=== PATIENT | male | born 1985 | race Caucasian/White ===

== ENCOUNTER 2021-01-16 09:33 | Emergency (ER) | payer BC ==
[~2021-01-16] VITALS: Ht 180.3 cm; Wt 123.0 kg
--- NOTE | 2021-01-16 10:16 | PHYS DOC ---
Past History Past Medical History: Asthma Past Surgical History: No Surgical History Alcohol Use: Occasionally General Adult EDM: Chief Complaint: CHEST PAIN HPI: HPI: Patient is a 35-year-old male coming in for 3 days of left-sided chest pain. Patient states that 3 days ago he was walking up the steps to his house when he felt a strong pain in his chest and "passed out". Patient states he awoke laying on his porch. Is unsure how long he was out but thinks he was lying better seconds. States the pain was like he was kicked by a horse. Patient denies any recent injuries. No other associated symptoms. Patient states the pain is 3 out of 10-day. Has not had this kind of pain in the past. Denies any past medical history denies any tobacco use, denies frequent alcohol use or drugs. Patient states he drinks 3 cups of coffee per day. No significant f amily medical history. Review of Systems: Review of Systems: All other systems within normal limits except for as noted in the HPI Allergies: Allergies: Allergies Coded Allergies Type Severity Reaction Last Updated Verified No Known Drug Allergies 01/16/21 No Physical Exam: PE: Constitutional: Well developed, well nourished, no acute distress, non-toxic appearance. [] HENT: Normocephalic, atraumatic, bilateral external ears normal, nose normal. [] Eyes: PERRLA, conjunctiva normal, no discharge. [] Neck: No rigidity, supple, no stridor. [] Cardiovascular: Regular rate and rhythm, brisk cap refill. No murmurs or gallops, no lower extremity edema [] Lungs & Thorax: Non labored symmetric respirations, no tachypnea or respiratory distress, sounds good auscultation. No chest wall tenderness palpation [] Abdomen: Soft, nondistended. Skin: Warm, dry, no erythema, no rash. [] Back: Unremarkable Extremities: No deformities, range of motion grossly intact, no lower extremity edema [] Neurologic: Alert and oriented X 3, no focal deficits noted. [] Psychologic: Affect normal, judgement normal, mood normal. [] Current Patient Data: Vital Signs: Vital Signs Date Time Temp Pulse Resp B/P (MAP) Pulse Ox O2 Delivery O2 Flow Rate FiO2 01/16/21 09:50 98.7 61 18 130/86 (101) 95 Room Air EKG: EKG: Sinus rhythm, heart rate 61 bpm, left axis deviation, no ST elevation or depression. [] Radiology/Procedures: Radiology/Procedures: PA and lateral views of the chest. Comparison: None. Indication: Chest pain and syncope Findings: The heart size is normal. No pneumothorax or effusion. No air space or interstitial disease. The bony structures are intact. Impression: 1. No acute cardiopulmonary process. [] Heart Score: C/O Chest Pain: Yes HEART Score for Chest Pain: HEART Score for Chest Pain Response (Comments) Value History Slighlty/Non-Suspicious 0 ECG Normal 0 Age < 45 0 Risk Factors 1 or 2 Risk Factors 1 Troponin < Normal Limit 0 Total 1 Risk Factors: Risk Factors: DM, Current or recent (<one month) smoker, HTN, HLP, family hi story of CAD, obesity. Risk Scores: Score 0 - 3: 2.5% MACE over next 6 weeks - Discharge Home Score 4 - 6: 20.3% MACE over next 6 weeks - Admit for Clinical Observation Score 7 - 10: 72.7% MACE over next 6 weeks - Early Invasive Strategies Course & Med Decision Making: Course & Med Decision Making Pertinent Labs and Imaging studies reviewed. (See chart for details) [] Dragon Disclaimer: Dragon Disclaimer: This electronic medical record was generated, in whole or in part, using a voice recognition dictation system. Departure Departure: Impression: Primary Impression: Chest pain Disposition: 01 HOME / SELF CARE / HOMELESS Condition: STABLE Referrals: PCP,UNKNOWN (PCP) Patient Instructions: Chest Pain (Nonspecific) JANI MOELLER MD Jan 16, 2021 10:16
[2021-01-16 10:23] LABS: BASO # 0.1 x10^3/uL (0.0-0.2); BASO % 1 % (0-3); EOS # 0.1 x10^3/uL (0.0-0.7); EOS % 2 % (0-3); HEMATOCRIT 45.5 % (39.0-53.0); HEMOGLOBIN 15.7 g/dL (13.0-17.5); LYMPH # 2.3 x10^3/uL (1.0-4.8); LYMPH % 35 % (24-48); MEAN CORPUSCULAR HEMOGLOBIN 31 pg (25-35); MEAN CORPUSCULAR HGB CONC 34 g/dL (31-37); MEAN CORPUSCULAR VOLUME 91 fL (79-100); MONO # 0.5 x10^3/uL (0.0-1.1); MONO % 8 % (0-9); NEUT # 3.6 x10^3uL (1.8-7.7); NEUT % 54 % (31-73); PLATELET COUNT 308 x10^3/uL (140-400); RED CELL DISTRIBUTION WIDTH 12.7 % (11.5-14.5); WHITE BLOOD COUNT 6.7 x10^3/uL (4.0-11.0)
--- NOTE | 2021-01-16 10:25 | EKG ---
[address] [address] Test Date: 2021-01-16 Test Time: 09:40:10 Pat Name: CHERELLE BRITO Department: Room: Gender: M [employer]: : 1985 Requested By: JANI MOELLER Order Number: [id number] Reading MD: Measurements Intervals [place] Rate: 61 P: 39 ND: 156 QRS: -17 QRSD: 86 T: 41 QT: 390 QTc: 394 Interpretive Statements SINUS RHYTHM LEFTWARD AXIS OTHERWISE NORMAL ECG RI6.02 No previous ECG available for comparison
[2021-01-16 10:43] LABS: CALCIUM 8.9 mg/dL (8.5-10.1); GFR 84.5; POTASSIUM 4.1 mmol/L (3.5-5.1)
[2021-01-16 10:54] LABS: ALBUMIN 3.5 g/dL (3.4-5.0); TOTAL BILIRUBIN 0.9 mg/dL (0.2-1.0)
[2021-01-16 11:05] LABS: BARBITURATES NEG (NEG); BENZODIAZEPINES NEG (NEG); CANNABINOIDS NEG (NEG); COCAINE NEG (NEG); METHADONE NEG (NEG); OPIATES NEG (NEG); PHENCYCLIDINE NEG (NEG)
[2021-01-16 11:06] LABS: AMPHETAMINE/METHAMPHETAMINE NEG (NEG)
[2021-01-16 11:11] LABS: CLARITY,URINE CLEAR; COLOR,URINE YELLOW
[2021-01-16 11:12] LABS: BILIRUBIN,URINE NEG (NEG); GLUCOSE,URINE NEG (NEG); NITRITE,URINE NEG (NEG)
[2021-01-16 11:13] LABS: BACTERIA,URINE 0 /HPF (0-FEW); RBC,URINE 0 /HPF (0-2); SQUAMOUS EPITHELIAL CELL,UR OCC /LPF; WBC,URINE 0 /HPF (0-4)
[2021-01-16] MEDS ORDERED: KETOROLAC 15 MG/ML VIAL. IVP ONE (11:30)
--- NOTE | 2021-01-16 11:48 | RAD ---
PA and lateral views of the chest. Comparison: None. Indication: Chest pain and syncope Findings: The heart size is normal. No pneumothorax or effusion. No air space or interstitial disease. The bon y structures are intact. Impression: 1. No acute cardiopulmonary process. Electronically signed by: Scott Brown MD (01/16/2021 11:46 AM) [id number]
[2021-01-16 12:19] VITALS: BP 106/67
== END 2021-01-16 12:22 | disposition home or self-care (01) ==
LOC: ER 09:33
DX: R07.89 Other chest pain (principal); J45.909 Unspecified asthma, uncomplicated
CPT/HCPCS: 36415; 71046; 80053; 80307; 81001; 83690; 83880; 84484; 85025; 85379; 93005; 96374; 99285; J1885

== ENCOUNTER 2021-05-15 03:19 | Inpatient (IN) | payer BC ==
[~2021-05-15] VITALS: Ht 180.3 cm; Wt 117.0 kg
[2021-05-15] MEDS ORDERED: ACETAMINOPHEN 500 MG TABLET PO ONE ×2 (03:45→16:15)
[2021-05-15] MEDS ORDERED: IV NORMAL SALINE 1,000ML 1,000 ML IV ONE (03:45)
[2021-05-15] MEDS ORDERED: DEXAMETHASONE SOD PHOS 10 MG/ML VIAL. IVP ONE (03:45)
--- NOTE | 2021-05-15 03:53 | PHYS DOC ---
Past History Past Medical History: Asthma Past Surgical History: Other Additional Past Surgical Histo: left arm Alcohol Use: Occasionally General Adult EDM: Chief Complaint: SHORTNESS OF BREATH HPI: HPI: 35-year-old male presents the emergency department with fever, chills, shortness of breath, fatigue for the past 10 days. He reports his symptoms have gradually increased, and now they have become severe. Upon his initial vitals in the emergency department, he was satting at 86% and was placed on 5 L of oxygen to maintain his saturations. He denies ever being on oxygen in the past. He also complains of severe diarrhea for the past several days along with chest pain that feels like pressure in his chest.. the patient denies nausea, vomiting, abdominal pain, urinary symptoms, cough, recent trauma, or any other complaints. Review of Systems: Review of Systems: Constitutional: Admits to fever and chills. Eyes: Denies change in vision, pain. HENT: Admits to headache, congestion. Respiratory: Denies any cough or shortness of breath. Cardiovascular: Admits to chest pain, denies edema. GI: Admits to diarrhea, nausea denies abdominal pain. : Denies change in urination, dysuria. Musculoskeletal: Denies extremity pain, or trauma. Skin: Denies rash, skin change. Neurologic: Denies sensory changes, focal weakness. Psychiatric: Denies depression or anxiety. All other systems reviewed as negative except for what was mentioned in the HPI. Family History: Family History: non contributory Current Medications: Current Meds: Current Medications Medications (Trade) Dose Ordered Sig/Luisito Start Time Stop Time Status Last Admin Dose Admin Acetaminophen (Tylenol) 1,000 mg 1X ONCE 05/15/21 03:45 05/15/21 03:49 DC Dexamethasone Sodium Phosphate (Decadron) 10 mg 1X ONCE 05/15/21 03:45 05/15/21 03:49 DC Info (Do NOT chart on this entry -- for MONITORING) 1 each PRN DAILY PRN 05/15/21 04:00 05/17/21 03:59 Iohexol (Omnipaque 350 Mg/ml) 100 ml 1X ONCE 05/15/21 04:00 05/15/21 04:01 Sodium Chloride 1,000 ml @ 1,000 mls/hr 1X ONCE 05/15/21 03:45 05/15/21 04:44 Allergies: Allergies: Allergies Coded Allergies Type Severity Reaction Last Updated Verified No Known Drug Allergies 05/15/21 No Physical Exam: PE: Constitutional: Mild acute distress. HENT: Atraumatic, bilateral external ears normal, nose normal. Eyes: PERRLA, EOMI, conjunctiva normal, no discharge. Neck: Normal range of motion, supple, no stridor. Cardiovascular: Heart rate regular rhythm. 2+ radial pulses Lungs & Thorax: Mild respiratory distress, symmetrical splinting. Coarse breath sounds bilaterally Abdomen: Soft, no tenderness Skin: Warm, dry. Extremities: No tenderness, no cyanosis, ROM intact, no edema. Neurologic: Alert and oriented X 3, normal motor function, normal sensory function, no focal deficits noted. Non ataxic gait. GCS 15. Psychologic: Affect normal, judgment normal, mood normal. Current Patient Data: Labs: Laboratory Tests Test 05/15/21 03:55 White Blood Count 4.5 x10^3/uL (4.0-11.0) Red Blood Count 4.73 x10^6/uL (4.30-5.70) Hemoglobin 14.6 g/dL (13.0-17.5) Hematocrit 42.3 % (39.0-53.0) Mean Corpuscular Volume 89 fL (79-100) Mean Corpuscular Hemoglobin 31 pg (25-35) Mean Corpuscular Hemoglobin Concent 35 g/dL (31-37) Red Cell Distribution Width 13.1 % (11.5-14.5) Platelet Count 245 x10^3/uL (140-400) Neutrophils (%) (Auto) 79 % (31-73) H Lymphocytes (%) (Auto) 17 % (24-48) L Monocytes (%) (Auto) 4 % (0-9) Eosinophils (%) (Auto) 0 % (0-3) Basophils (%) (Auto) 0 % (0-3) Neutrophils # (Auto) 3.6 x10^3uL (1.8-7.7) Lymphocytes # (Auto) 0.8 x10^3/uL (1.0-4.8) L Monocytes # (Auto) 0.2 x10^3/uL (0.0-1.1) Eosinophils # (Auto) 0.0 x10^3/uL (0.0-0.7) Basophils # (Auto) 0.0 x10^3/uL (0.0-0.2) Sodium Level 135 mmol/L (136-145) L Potassium Level 3.6 mmol/L (3.5-5.1) Chloride Level 99 mmol/L (98-107) Carbon Dioxide Level 28 mmol/L (21-32) Anion Gap 8 (6-14) Blood Urea Nitrogen 11 mg/dL (8-26) Creatinine 1.0 mg/dL (0.7-1.3) Estimated GFR (Cockcroft-Gault) 84.5 Glucose Level 132 mg/dL (70-99) H Calcium Level 7.6 mg/dL (8.5-10.1) L Troponin I Quantitative 0.039 ng/mL (0-0.055) GD-Jyz-W-Type Natriuretic Peptide 39 pg/mL (0-124) Vital Signs: Vital Signs Date Time Temp Pulse Resp B/P (MAP) Pulse Ox O2 Delivery O2 Flow Rate FiO2 05/15/21 03:35 103.1 89 22 133/72 92 Nasal Cannula 5.0 EKG: EKG: Normal sinus rhythm rate of 87, no ST-T wave changes, no ectopic beats, but as reviewed, normal CO, QRS, and QTc intervals. Copious motion artifact. Impression: Normal EKG. interpreted by meChi D.O. Radiology/Procedures: Radiology/Procedures: AP chest x-ray HISTORY: Shortness of breath. FINDINGS: Heart size normal. Mediastinal silhouette is normal. No pneumothorax. No pleural effusion. There are heterogeneous lower lobe greater than upper lobe pulmonary opacities. No pulmonary interstitial edema evident. Bones are unremarkable. IMPRESSION: Preferential lower lobe greater than upper lobe heterogeneous pulmonary opacities, most likely representing multilobar pneumonitis/pneumonia or noncardiogenic pulmonary edema. Electronically signed by: Terry Covarrubias MD (05/15/2021 4:48 AM) CT angiography chest with contrast PQRS statement: CT scans at this facility use dose reduction including either automated exposure control, iterative reconstructions, and /or weight based radiation dosing via mA and kV modification when appropriate to reduce radiation dose to as low as reasonably achievable. Contrast: 100 mL Isovue-370 intravenous contrast. HISTORY: Chest pain. FINDINGS: Ascending aorta diameter 3.3 cm. Heart size is normal. Aorta and esophagus are normal. No pulmonary emboli. There is mediastinal and hilar adenopathy largest lymph nodes measuring up to 2 x 1 cm. Trachea and bronchi are unremarkable. No pulmonary interstitial edema. No pleural effusions. There are b ilateral heterogeneous pulmonary opacities within both groundglass densities as well as some areas of consolidation with involvement of the lower lobes greater than the upper lobes with near complete consolidation of the right lower lobe. Bones are unremarkable. IMPRESSION: 1. No pulmonary artery emboli. 2. Extensive lower lobe greater than upper lobe pulmonary opacities with mixed groundglass densities and areas of consolidation with near-complete opacification right lower lobe, this is most typical of an infectious/inflammatory process including Covid viral pneumonia. 3. Mediastinal and hilar adenopathy. Electronically signed by: Terry Covarrubias MD (05/15/2021 4:47 AM) Heart Score: C/O Chest Pain: Yes HEART Score for Chest Pain: HEART Score for Chest Pain Response (Comments) Value History Moderately Suspicious 1 Age < 45 0 Risk Factors No Risk Factors 0 Troponin < Normal Limit 0 Total 1 Course & Med Decision Making: Course & Med Decision Making Patient with heart score 1. Patient was hypoxic on room air, required oxygen to keep his saturations above 90%. His chest x-ray shows a multifocal pneumonia pattern. He had a CTA ordered due to his hypoxia and tachycardia along with chest pain. Also shows a multifocal pulmonary injury pattern. Appears to be a consistent presentation with Covid pneumonia, although this test is pending patient will be admitted to the hospital service under Dr. Emmanuel Vega - CHI DUGGAN DO Procedure Category Date Status Time Chest Ap Only RAD 05/15/21 Resulted 03:43 Cbc W Autodiff LAB 05/15/21 Complete 03:43 Basic Metabolic Panel LAB 05/15/21 Complete 03:43 Troponin I LAB 05/15/21 Complete 03:43 Nt-Pro Bnp LAB 05/15/21 Complete 03:43 12 Lead Ekg EKG 05/15/21 Transmitted 03:[address] 05/15/21 Resulted 03:43 Coronavirus-19, Pcr LAB 05/15/21 Logged ([facility]) 03:43 Dexamethasone Sod PHA 05/15/21 Complete Phos (Decadron) 03:45 Acetaminophen PHA 05/15/21 Complete (Tylenol) 03:45 Iv Normal Saline PHA 05/15/21 Complete 1,000ml (Iv Sodium 03:45 Iohexol 350 Mg/Ml PHA 05/15/21 Complete (Omnipaque 350 Mg/Ml) 04:00 Contrast Given (Do PHA 05/15/21 In Process Not Chart On This Ent 04:00 Ceftriaxone Sodium PHA 05/15/21 In Process (Rocephin) 04:45 Azithromycin PHA 05/15/21 In Process (Zithromax) 04:45 [place] Order ADT 05/15/21 Transmitted 04:52 Code Status CODE 05/15/21 Transmitted 04:52 Vital Signs, Per ARETHA 05/15/21 In Process Protocol 04:52 Oxygen ARETHA 05/15/21 In Process 04:52 Regular DIET 05/15/21 Transmitted Breakfast Ambulate With ARETHA 05/15/21 In Process Assistance 04:52 Ondansetron Pf PHA 05/15/21 Logged (Zofran) 05:00 Fentanyl Pf (Fentanyl PHA 05/15/21 Logged 2ml Vial) 05:00 Consult Physician By ANITA 05/15/21 Transmitted Name 04:52 Departure Departure: Impression: Primary Impression: Person under investigation for COVID-19 Additional Impression: Pneumonia Disposition: 09 ADMITTED INPATIENT Admitting Physician: Austin Benitez Referrals: PCP,UNKNOWN (PCP) CHI DUGGAN DO May 15, 2021 03:53
[2021-05-15] MEDS ORDERED: IOHEXOL 350 MG/ML 100 ML VIAL. IV ONE (04:00)
[2021-05-15] MEDS ORDERED: CONTRAST GIVEN. MC PRN (04:00)
[2021-05-15 04:11] LABS: BASO % 0 % (0-3); EOS % 0 % (0-3); HEMATOCRIT 42.3 % (39.0-53.0); HEMOGLOBIN 14.6 g/dL (13.0-17.5); LYMPH # 0.8 x10^3/uL (1.0-4.8); LYMPH % 17 % (24-48); MEAN CORPUSCULAR HEMOGLOBIN 31 pg (25-35); MEAN CORPUSCULAR HGB CONC 35 g/dL (31-37); MEAN CORPUSCULAR VOLUME 89 fL (79-100); MONO # 0.2 x10^3/uL (0.0-1.1); MONO % 4 % (0-9); NEUT # 3.6 x10^3uL (1.8-7.7); NEUT % 79 % (31-73); PLATELET COUNT 245 x10^3/uL (140-400); RED BLOOD COUNT 4.73 x10^6/uL (4.30-5.70); RED CELL DISTRIBUTION WIDTH 13.1 % (11.5-14.5); WHITE BLOOD COUNT 4.5 x10^3/uL (4.0-11.0)
[2021-05-15 04:17] LABS: CALCIUM 7.6 mg/dL (8.5-10.1); GFR 84.5; POTASSIUM 3.6 mmol/L (3.5-5.1)
[2021-05-15] MEDS ORDERED: AZITHROMYCIN 500 MG in IV NORMAL SALINE 250ML 250 ML IV ONE (04:45)
--- NOTE | 2021-05-15 04:49 | RAD ---
CT angiography chest with contrast PQRS statement: CT scans at this facility use dose reduction including either automated exposure cont rol, iterative reconstructions, and /or weight based radiation dosing via mA and kV modification when appropriate to reduce radiation dose to as low as reasonably achievable. Contrast: 100 mL Isovue-370 intravenous contrast. HISTORY: Chest pain. FINDINGS: Ascending aorta diameter 3.3 cm. Heart size is normal. Aorta and esophagus are normal. No p ulmonary emboli. There is mediastinal and hilar adenopathy largest lymph nodes measuring up to 2 x 1 cm. Trachea and bronchi are unremarkable. No pulmonary interstitial edema. No pleural effusions. Ther e are bilateral heterogeneous pulmonary opacities within both groundglass densities as well as some a reas of consolidation with involvement of the lower lobes greater than the upper lobes with near comp lete consolidation of the right lower lobe. Bones are unremarkable. IMPRESSION: 1. No pulmonary artery emboli. 2. Extensive lower lobe greater than upper lobe pulmonary opacities with mixed groundglass densities and areas of consolidation with near-complete opacification right lower lobe, this is most typical of an infectious/inflammatory process including Covid viral pneumonia. 3. Mediastinal and hilar adenopathy. Electronically signed by: Terry Covarrubias MD (05/15/2021 4:47 AM) [facility]
--- NOTE | 2021-05-15 04:50 | RAD ---
AP chest x-ray HISTORY: Shortness of breath. FINDINGS: Heart size normal. Mediastinal silhouette is normal. No pneumothorax. No pleural effusion. There are heterogeneous lower lobe greater than upper lobe pulmonary opacities. No pulmonary intersti tial edema evident. Bones are unremarkable. IMPRESSION: Preferential lower lobe greater than upper lobe heterogeneous pulmonary opacities, most l ikely representing multilobar pneumonitis/pneumonia or noncardiogenic pulmonary edema. Electronically signed by: Terry Covarrubias MD (05/15/2021 4:48 AM) [facility]
[2021-05-15] MEDS ORDERED: ONDANSETRON PF 4 MG/2 ML VIAL. IVP PRN (05:00)
--- NOTE | 2021-05-15 05:01 | EKG ---
[address] [address] Test Date: 2021-05-15 Test Time: 04:44:05 Pat Name: CHERELLE BRITO Department: Room: Gender: M [employer]st: HANG : 1985 Requested By: HELEN DUGGAN Order Number: [id number] Reading MD: Measurements Intervals [place] Rate: 87 P: 31 MN: 138 QRS: -17 QRSD: 82 T: 11 QT: 360 QTc: 439 Interpretive Statements SINUS RHYTHM LEFTWARD AXIS R-S TRANSITION ZONE IN V LEADS DISPLACED TO THE LEFT OTHERWISE NORMAL ECG RI6.02 Compared to ECG 05/15/2021 04:40:35 Left-axis deviation now present
[2021-05-15] MEDS ORDERED: IV NORMAL SALINE 100ML 100 ML ONE (05:18)
[2021-05-15 07:59] VITALS: BP 108/75
[2021-05-15 11:02] VITALS: BP 107/71
--- NOTE | 2021-05-15 11:25 | HP ---
ADMIT DATE: 05/15/2021 ATTENDING PHYSICIAN: Dr. Benitez. CHIEF COMPLAINT: Shortness of breath. HISTORY OF PRESENT ILLNESS: The patient is a 35-year-old male who has been quite healthy otherwise. He developed COVID about 10 days ago. He has gotten progressively worse in the ED. He is progressively short of breath even at rest. He had saturation of 86%. He was placed on 5 liters of oxygen to maintain a saturation. He is a nonsmoker. His followup chest x-ray and CT scan showed no blood clots, but he has significant diffuse infiltrates in both the lower bases with consolidation. He is admitted then with COVID pneumonia. PAST MEDICAL HISTORY: Unremarkable for any chronic illness. He has mild occasional childhood asthma. MEDICATIONS: He is not on any medication. ALLERGIES: He has no known drug allergies. FAMILY HISTORY: Parents are alive in their early 60s. 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 REVIEW OF SYSTEMS: Significant for the gradual worsening dyspnea with exertion, mild nonproductive cough, low-grade fevers. No nausea. He did have some diarrhea a few days past. All other systems reviewed and turned to be negative. PHYSICAL EXAMINATION: GENERAL: When I saw him, this is a pleasant young male. INITIAL VITAL SIGNS: Showed a blood pressure 108/75, pulse is 72 and regular, oxygen saturation 93% on 5 liters by nasal cannula. HEENT: Head is without trauma. Pupils are reactive. Sclerae nonicteric. Oropharynx clear. NECK: Supple, no bruits. LUNGS: Diffuse rhonchi at both bases. CARDIOVASCULAR: Show regular heart tones. No gallops. ABDOMEN: Soft. EXTREMITIES: Without edema. NEUROLOGIC: Findings focally intact. SKIN: Warm and dry. PERTINENT LABORATORY STUDIES: Electrolytes within normal range. Creatinine 1.0 mg percent. His hemoglobin was 14.6 grams, white count 4500. IMAGING STUDIES: CT of the chest showed no pulmonary emboli. He had extensive lower lobe infiltrates, also in the upper lobes with ground glass densities, areas of consolidation and opacification of the right lower lobe, most typical of an inflammatory process including COVID viral pneumonia, mediastinal hilar adenopathy noted. ASSESSMENT: 1. A 35-year-old gentleman with bilateral COVID pneumonia. 2. Hypoxemia. 3. Generalized weakness. PLAN: 1. Admit to the inpatient unit. 2. Supplemental oxygen. 3. Empiric corticosteroids. 4. We will try to wean down his oxygen demands. JONNY DR: Vianney TID: [id number]
[2021-05-15] MEDS: methylPREDNISolone SOD SUCC PF 125 MG/2 ML VIAL. IV SCH ×2 (12:27→21:07)
[2021-05-15 15:02] VITALS: BP 124/78
--- NOTE | 2021-05-15 15:56 | NUR ---
Pt admitted at 0800 to room 106.
--- NOTE | 2021-05-15 15:56 | NUR ---
Nursing note Pt oxygen saturation dropped to 88% doctor notified with orders received to transfer to ICU and titrate oxygen to keep at or above 90
[2021-05-15] MEDS ORDERED: IPRATRPIUM/ALBUTEROL 0.5/2.5MG 3 ML NEBU. NEB SCH (16:00)
[2021-05-15] MEDS ORDERED: IPRATROPIUM/ALBUTEROL 20/100mcg/INH INHALER. INH SCH (16:00)
[2021-05-15] MEDS: IPRATRPIUM/ALBUTEROL 0.5/2.5MG 3 ML NEBU. NEB SCH ×2 (16:00→20:00)
[2021-05-15 16:03] VITALS: BP 115/74
[2021-05-15] MEDS ORDERED: ACETAMINOPHEN 500 MG TABLET PO PRN (17:30)
[2021-05-15 20:30] VITALS: BP 108/69
--- NOTE | 2021-05-15 22:00 | NUR ---
Pt left at this time to go to [facility] room 660. Report was given at 2037. Pt left with belongings.
--- NOTE | 2021-05-16 09:09 | DS ---
DATE OF DISCHARGE: 05/15/2021 ATTENDING PHYSICIAN: Dr. Benitez. FINAL DISCHARGE DIAGNOSES: 1. Bilateral COVID pneumonia. 2. Acute respiratory failure with hypoxemia. 3. Generalized weakness. HISTORY AND PHYSICAL: The patient is a 35-year-old gentleman with a 10-day history of COVID infection. He has gotten progressively worse. He had respiratory failure. He was symptomatically dyspneic. In the ED, his oxygen saturation on room air was 86%. He was placed on 5 liters. He was admitted with COVID pneumonia. PHYSICAL EXAMINATION: Please see the dictated note. PERTINENT LABORATORY AND X-RAY STUDIES: Admission hemoglobin was 14.6 g/dL with a white count of 4500. Electrolytes within normal range. Troponin was 0.03. Serology was positive for the coronavirus. He had a CT of the chest done in the ED, which showed no evidence of blood clot; however, he has extensive lower lobe pulmonary opacities with mixed ground glass densities and areas of consolidation with near opacification of right lower lobe. This is consistent with inflammatory process including COVID viral pneumonia. He also had mediastinal and hilar adenopathy. COURSE IN THE HOSPITAL: The patient was admitted. He did require supplemental oxygen eventually 5 liters and up to 7 liters to maintain adequate saturations. Because of his CT scan and his clinical symptoms, we felt that he would be better at a higher level of care with ICU capabilities. Early in the day, I called [facility], they did not have any beds. However, later that evening at 2200 hours, a bed did come open at [facility] and the patient was transferred by ambulance to [facility]. I spoke with Dr. Doshi's group as the accepting physicians. Whilst here, he did receive empiric Solu-Medrol in addition to breathing treatments and his supplemental oxygen. The patient was then discharged from our hospital in stable condition to [facility] for higher level of care given his respiratory failure and COVID pneumonia. JUDIE CALDERON: Vianney TID: [id number]
== END 2021-05-15 22:04 | disposition short-term general hospital (02) | DRG 177 ==
LOC: ER 03:19 → 1 SOUTH 04:52 → ICU 15:48
PROVIDERS: ADMIT Hospitalist; ATTEND Hospitalist
DX: U07.1 COVID-19 (principal); J12.82 Pneumonia due to coronavirus disease 2019; J96.01 Acute respiratory failure with hypoxia; J81.1 Chronic pulmonary edema; J45.909 Unspecified asthma, uncomplicated
CPT/HCPCS: 71045; 71275; 80048; 83880; 84484; 85025; 87426; 93005; 94640; 96361; 96374; G0238; J0456; J0696; J1100; J2930; J7050; Q9967; U0003; 99285-25; J7030